=== PATIENT | male | born 1930 | race Caucasian/White ===

== ENCOUNTER 2017-12-03 20:26 | Emergency (ER) | payer MEDICARE, OTHER ==
[~2017-12-03] VITALS: Ht 175.3 cm; Wt 83.9 kg
[~2017-12-03 20:26] MED LIST: ALL300 PO; ALLO-119 PO; ALLO-2 PO; AMOX500T10 PO; CHOL100058 PO; CHOL100059 PO; CIPR-326 PO; DILT180C4 PO; DILT240C76 PO; DOC100 PO; FIN5 PO; FURO-45 PO; HYDR-3250 PO; LEV125 PO; LEVO125T77 PO; LOR5 PO; LOR5/325 PO; METO25TA93 PO; MIRA50TA PO; OXYC-865 PO; PHENA200 PO; SPIR25TA78 PO; TOLT4CAP13 PO; TRI05T TP; TRIA15CR40 TP; TRIA5T TOP; WAR25 PO; WARF-18 PO
--- NOTE | 2017-12-03 20:29 | ER Report ---
History and Physical Time Seen By : 20:28 HPI/ROS CHIEF COMPLAINT: Fall, right rib pain HISTORY OF PRESENT ILLNESS: 87-year-old male with multiple medical problems. On warfarin fell yesterday after he slipped on ice. He landed on the right side of his rib cage. He presents to the ER complaining of severe 9/10 right rib pain. He is barely able to take a deep breath. He has splinting respirations. He denies hemoptysis, fever, chills or productive cough. Patient denies head or neck pain. Patient denies extremity injury. REVIEW OF SYSTEMS: Respiratory: As above Cardiovascular: As above Gastrointestinal: No vomiting, no abdominal pain. Musculoskeletal: No back pain. Allergies: Coded Allergies: No Known Allergies (Verified Allergy, Mild, 12/03/17) Home Meds Active Scripts Oxycodone Hcl/Acetaminophen (PERCOCET 5-325 MG TABLET) 1 Each Tablet, 1 EACH PO Q4-6H Y for PAIN, #15 Prov:SHAWNA COLLAZO DO 12/03/17 Warfarin Sodium (WARFARIN SODIUM) 5 Mg Tablet, 0.5 TAB PO QDAY, #45 TAB 3 Refills Prov:SHWETA SEPULVEDA MD 05/24/15 Levothyroxine Sodium (LEVOTHYROXINE SODIUM) 0.125 Mg Tab, 1 TAB PO QDAY, #90 TAB 3 Refills Prov:SHWETA SEPULVEDA MD 04/23/15 Diltiazem Hcl (DILTIAZEM 24HR CD) 180 Mg Cap.er.24h, 1 CAP PO DAILY, #90 CAP 3 Refills Prov:SHWETA SEPULVEDA MD 04/23/15 Discontinued Reported Medications Mirabegron (MYRBETRIQ) 50 Mg Tab.er.24h, 50 MG PO QDAY 09/30/16 Cholecalciferol (Vitamin D3) (VITAMIN D3) 1,000 Unit Capsule, 1000 UNIT PO DAILY , CAPSULE 07/11/14 Discontinued Scripts Oxycodone Hcl/Acetaminophen (PERCOCET 5-325 MG TABLET) 1 Each Tablet, 1 EACH PO Q4H Y for PAIN, #15 Prov:VALESHAWNA Jos TOBIAS 09/30/16 Triamcinolone Acetonide 0.1% Cr 15 Gm Tube (TRIAMCINOLONE ACETONIDE 0.1% CREAM) 15 Gm Cream..g., 15 GM TP BID, #30 GM 3 Refills Prov:SHWETA SEPULVEDA MD 04/25/15 Allopurinol (Allopurinol) 300 Mg Tablet, 0.5 TAB PO 3XW, #30 TAB 3 Refills Prov:SHWETA SEPULVEDA MD 04/23/15 Spironolactone (SPIRONOLACTONE) 25 Mg Tablet, 1 TAB PO QAM, #90 TAB 3 Refills Prov:SHWETA SEPULVEDA MD 04/23/15 Metoprolol Tartrate (METOPROLOL TARTRATE) 25 Mg Tablet, 1 TAB PO BID, #180 TAB Prov:SHWETA SEPULVEDA MD 04/23/15 Reviewed Nurses Notes: Yes Old Medical Records Reviewed: Yes Hx Smoking: No Smoking Status: Former Smoker Hx Substance Use Disorder: No Hx Alcohol Use: Yes (SELDOM) Constitutional Vital Sign - Last 24 Hours 12/03/17 12/03/17 12/03/17 12/03/17 20:31 20:33 20:45 21:00 Temp 99.0 Pulse 88 87 82 Resp 14 B/P (MAP) 148/95 (112) 148/95 113/71 (85) Pulse Ox 95 94 96 O2 Delivery Room Air 12/03/17 12/03/17 12/03/17 12/03/17 21:09 21:29 21:30 21:45 Pulse 83 88 B/P (MAP) 127/70 (89) Pulse Ox 94 92 O2 Flow Rate 2.0 12/03/17 22:00 Pulse 88 Resp 16 B/P (MAP) 126/82 (97) Pulse Ox 92 O2 Delivery Room Air Physical Exam Vital signs stable,, pulse ox normal, afebrile General Appearance: The patient is alert, has no immediate need for airway protection and no current signs of toxicity. Moderate distress, skin warm, dry , pink, palpation of the head and neck reveals no tenderness or trauma HEENT: Pupils equal and round no injection. Oropharynx without dental trauma Respiratory: Significant right chest wall tenderness. There is no ecchymosis, crepitus or subcutaneous days air noted. Breath sounds are decreased. Cardiac: regular rate and rhythm Gastrointestinal: Abdomen is soft and non tender, no masses, bowel sounds normal. Musculoskeletal: Neck: Neck is supple and non tender. Extremities have full range of motion and are non tender. No evidence of trauma Skin: No rashes or lesions. DIFFERENTIAL DIAGNOSIS: After history and physical exam differential diagnosis was considered for fall in the elderly including but not limited to intracranial injury, long bone and pelvic bone fracture, spinal injury, and intrathoracic injury. Medical Decision Making Data Points Result Diagram: 12/03/17203912/03/172039 Laboratory Hematology Test 12/03/17 20:40 Red Blood Count 5.14 M/uL (4.00-5.60) Mean Corpuscular Volume 93.9 fL (80.0-96.0) Mean Corpuscular Hemoglobin 32.0 pg (26.0-33.0) Mean Corpuscular Hemoglobin Concent 34.1 g/dL (32.0-36.0) Red Cell Distribution Width 13.7 % (11.5-14.5) Mean Platelet Volume 8.1 fL (7.2-11.1) Neutrophils (%) (Auto) 66.4 % (39.4-72.5) Lymphocytes (%) (Auto) 15.0 % (17.6-49.6) Monocytes (%) (Auto) 14.4 % (4.1-12.4) Eosinophils (%) (Auto) 1.9 % (0.4-6.7) Basophils (%) (Auto) 2.3 % (0.3-1.4) Nucleated RBC Relative Count (auto) 0.1 /100WBC Neutrophils # (Auto) 5.6 K/uL (2.0-7.4) Lymphocytes # (Auto) 1.3 K/uL (1.3-3.6) Monocytes # (Auto) 1.2 K/uL (0.3-1.0) Eosinophils # (Auto) 0.2 K/uL (0.0-0.5) Basophils # (Auto) 0.2 K/uL (0.0-0.1) Nucleated RBC Absolute Count (auto) 0.00 K/uL Prothrombin Time 28.9 seconds (12.0-14.4) Prothromb Time International Ratio 2.62 Activated Partial Thromboplast Time 36 seconds (23-35) Sodium Level 139 mmol/L (137-145) Potassium Level 4.0 mmol/L (3.5-5.0) Chloride Level 102 mmol/L (98-107) Carbon Dioxide Level 27 mmol/L (22-30) Blood Urea Nitrogen 14 mg/dl (9-21) Creatinine 1.10 mg/dl (0.66-1.25) Glomerular Filtration Rate Calc > 60.0 Random Glucose 100 mg/dl (75-110) Calcium Level 9.9 mg/dl (8.4-10.2) Total Bilirubin 1.7 mg/dl (0.2-1.3) Aspartate Amino Transf (AST/SGOT) 22 U/L (0-35) Alanine Aminotransferase (ALT/SGPT) 34 U/L (0-56) Alkaline Phosphatase 70 U/L (0-126) Total Protein 7.2 gm/dl (6.3-8.2) Albumin 3.9 g/dl (3.5-5.0) Chemistry Test 12/03/17 20:40 White Blood Count 8.4 k/uL (4.5-11.0) Red Blood Count 5.14 M/uL (4.00-5.60) Hemoglobin 16.4 g/dL (14.0-18.0) Hematocrit 48.3 % (42.0-52.0) Mean Corpuscular Volume 93.9 fL (80.0-96.0) Mean Corpuscular Hemoglobin 32.0 pg (26.0-33.0) Mean Corpuscular Hemoglobin Concent 34.1 g/dL (32.0-36.0) Red Cell Distribution Width 13.7 % (11.5-14.5) Platelet Count 194 K/uL (150-450) Mean Platelet Volume 8.1 fL (7.2-11.1) Neutrophils (%) (Auto) 66.4 % (39.4-72.5) Lymphocytes (%) (Auto) 15.0 % (17.6-49.6) Monocytes (%) (Auto) 14.4 % (4.1-12.4) Eosinophils (%) (Auto) 1.9 % (0.4-6.7) Basophils (%) (Auto) 2.3 % (0.3-1.4) Nucleated RBC Relative Count (auto) 0.1 /100WBC Neutrophils # (Auto) 5.6 K/uL (2.0-7.4) Lymphocytes # (Auto) 1.3 K/uL (1.3-3.6) Monocytes # (Auto) 1.2 K/uL (0.3-1.0) Eosinophils # (Auto) 0.2 K/uL (0.0-0.5) Basophils # (Auto) 0.2 K/uL (0.0-0.1) Nucleated RBC Absolute Count (auto) 0.00 K/uL Prothrombin Time 28.9 seconds (12.0-14.4) Prothromb Time International Ratio 2.62 Activated Partial Thromboplast Time 36 seconds (23-35) Glomerular Filtration Rate Calc > 60.0 Calcium Level 9.9 mg/dl (8.4-10.2) Total Bilirubin 1.7 mg/dl (0.2-1.3) Aspartate Amino Transf (AST/SGOT) 22 U/L (0-35) Alanine Aminotransferase (ALT/SGPT) 34 U/L (0-56) Alkaline Phosphatase 70 U/L (0-126) Total Protein 7.2 gm/dl (6.3-8.2) Albumin 3.9 g/dl (3.5-5.0) Coagulation Test 12/03/17 20:40 Prothrombin Time 28.9 seconds Prothromb Time International Ratio 2.62 Activated Partial Thromboplast Time 36 seconds EKG/Imaging Imaging Results: CT scan of the chest with contrast was obtained. The results of the study are COMPUTED TOMOGRAPHY CHEST WITH INTRAVENOUS CONTRAST DATE OF EXAM: 12/03/2017 8:39 PM CLINICAL INDICATION: Fall, right-sided rib pain. COMPARISON: Rib series radiographs 09/30/2016. TECHNIQUE: Contrast enhanced axial chest CT performed during the uneventful injection of 75 ml of Isovue 370. Sagittal and coronal multiplanar reconstructions were performed. One of the following dose optimization techniques was utilized in the performance of this exam: Automated exposure control; adjustment of the mA and/or kV according to the patient's size; or use of an iterative reconstruction technique. Specific details can be referenced in the facility's radiology CT exam operational policy. FINDINGS: Thyroid: Normal. Thoracic inlet: Normal. Heart and great vessels: Mild to moderate enlargement of the heart. Nonaneurysmal aorta with moderate atherosclerosis. Central pulmonary arteries are enlarged. Mediastinum and alejandro: Shotty mediastinal lymph nodes. Lungs and pleura: Mild atelectasis. No pleural effusion or pneumothorax. 3 mm nodule in the right apex on image 27 series 2, and 4 mm subpleural nodule in the right lower lobe on image 80. Breast and axilla: Prominent bilateral gynecomastia. No adenopathy. Upper abdomen: Suspected right renal cyst, incompletely imaged. Colonic diverticulosis. Subcentimeter cyst in the left lobe of the liver. Cholecystectomy. Bones and soft tissues: There are nondisplaced lateral fractures of the right 5th through 9th ribs that are likely acute. Additional bilateral remote fractures. IMPRESSION: 1. Acute nondisplaced lateral fractures of the right 5th through 9th ribs. 2. Mild/moderate cardiomegaly. 3. Enlarged central pulmonary arteries could indicate pulmonary arterial hypertension. The study was read by the radiologist. I viewed the images myself on the PACS system. ED Course/Re-evaluation Clinical Indication for ER IV: Hydration, IV Access ED Course Patient was admitted to an examination room. H&P was done. The differential diagnoses was considered. On clinical examination. She has significant right rib pain. A CT scan of the chest with IV contrast is performed. Since he is on anticoagulants.. The CT scan shows 4. Nondisplaced rib fractures of the right chest wall. Patient was medicated with fentanyl IV. His diagnostic studies are otherwise unremarkable. Patient be discharged home on Percocet for pain control. He's been on Percocet which was prescribed in the past and had tolerated it well. She was cautioned to start fiber and stool softeners to prevent constipation. Decision to Disposition Date: Dec 03, 2017 Decision to Disposition Time: 22:04 Depart Departure Latest Vital Signs Vital Signs Date Time Temp Pulse Resp B/P (MAP) Pulse Ox O2 Delivery O2 Flow Rate FiO2 12/03/17 22:00 88 16 126/82 (97) 92 Room Air 12/03/17 21:09 2.0 12/03/17 20:33 99.0 Impression: Primary Impression: Fracture four ribs-closed Condition: Improved Disposition: HOME OR SELF-CARE Referrals: YEFRI BLEVINS DO (PCP) New Scripts Oxycodone Hcl/Acetaminophen (PERCOCET 5-325 MG TABLET) 1 Each Tablet 1 EACH PO Q4-6H Y for PAIN, #15 Prov: SHAWNA COLLAZO DO 12/03/17 Patient Instructions: Rib Fracture (ED) Additional Instructions: Follow-up with your primary care if unimproved in 3-5 days Return to the ER for any worsening, especially a fever or shortness of breath Problem Qualifiers Primary Impression: Fracture four ribs-closed Encounter type: initial encounter Laterality: right Qualified Codes: S22.41XA - Multiple fractures of ribs, right side, initial encounter for closed fracture SHAWNA COLLAZO DO Dec 03, 2017 20:29
[2017-12-03] MEDS ORDERED: NS(*) 0.9% 1000 ML BAG 1,000 ML IV ONE (20:39)
[2017-12-03] MEDS ORDERED: ONDANSETRON 4 MG/2 ML VIAL IVP ONE (20:40)
[2017-12-03] MEDS ORDERED: fentaNYL CITR 100 MCG/2 ML AMP IVP ONE (20:40)
[2017-12-03] MEDS ORDERED: NS 0.9% 20 ML SDV 60 ML ONE (20:48)
[2017-12-03] MEDS ORDERED: IOPAMIDOL 76% 75 ML INFUS BTL 75 ML ONE (20:48)
[2017-12-03 20:53] LABS: PLATELET COUNT, AUTOMATED 194 K/uL (150-450)
[2017-12-03 20:59] LABS: INR 2.62
--- NOTE | 2017-12-03 21:59 | RADIOLOGY IMAGING REPORT ---
FACILITY: [facility] [place] PATIENT NAME: Haroldo Garza : 1930 MR: [id number] V: [id number] EXAM DATE: ORDERING PHYSICIAN: SHAWNA COLLAZO TECHNOLOGIST: Location: [facility] Patient: Haroldo Garza : 1930 Visit/Account:[id number] Date of Sevice: 12/03/2017 COMPUTED TOMOGRAPHY CHEST WITH INTRAVENOUS CONTRAST DATE OF EXAM: 12/03/2017 8:39 PM CLINICAL INDICATION: Fall, right-sided rib pain. COMPARISON: Rib series radiographs 09/30/2016. TECHNIQUE: Contrast enhanced axial chest CT performed during the uneventful injection of 75 ml of Iso bonita 370. Sagittal and coronal multiplanar reconstructions were performed. One of the following dose optimization techniques was utilized in the performance of this exam: Automated exposure control; ad justment of the mA and/or kV according to the patient's size; or use of an iterative reconstruction technique. Specific details can be referenced in the facility's radiology CT exam operational policy . FINDINGS: Thyroid: Normal. Thoracic inlet: Normal. Heart and great vessels: Mild to moderate enlargement of the heart. Nonaneurysmal aorta with modera te atherosclerosis. Central pulmonary arteries are enlarged. Mediastinum and alejandro: Shotty mediastinal lymph nodes. Lungs and pleura: Mild atelectasis. No pleural effusion or pneumothorax. 3 mm nodule in the right apex on image 27 series 2, and 4 mm subpleural nodule in the right lower lobe on image 80. Breast and axilla: Prominent bilateral gynecomastia. No adenopathy. Upper abdomen: Suspected right renal cyst, incompletely imaged. Colonic diverticulosis. Subcentimet er cyst in the left lobe of the liver. Cholecystectomy. Bones and soft tissues: There are nondisplaced lateral fractures of the right 5th through 9th ribs t hat are likely acute. Additional bilateral remote fractures. IMPRESSION: 1. Acute nondisplaced lateral fractures of the right 5th through 9th ribs. 2. Mild/moderate cardiomegaly. 3. Enlarged central pulmonary arteries could indicate pulmonary arterial hypertension. Report Dictated By: Derrick Sanchez MD at 12/03/2017 9:43 PM Report E-Signed By: Derrick Sanchez MD at 12/03/2017 9:54 PM [id number]
[2017-12-03 22:00] VITALS: BP 126/82
[2017-12-03] MEDS ORDERED: OXYC-865 PO (22:05)
[2017-12-03] MEDS ORDERED: oxyCODONE/ACETAMIN 5/325MG TH 2 TAB/BOTTLE PO ONE (22:10)
== END 2017-12-03 22:15 | disposition home or self-care (01) ==
LOC: ER 20:30
DX: S22.41XA Multiple fractures of ribs, right side, initial encounter for closed fracture (principal); W00.0XXA Fall on same level due to ice and snow, initial encounter
CPT/HCPCS: 71260; 85025; 85610; 85730; 96361; 96374; 96375; 99284; J2405; J3010; J7030; J7050; Q9967; 82040; 82247; 82310; 82374; 82435; 82565; 82947; 84075; 84132; 84155; 84295; 84450; 84460; 84520

== ENCOUNTER 2018-04-17 09:04 | Emergency (ER) | payer MEDICARE, OTHER ==
[~2018-04-17 09:04] MED LIST changes: -WARF-18 PO; +WARF5TAB23 PO
--- NOTE | 2018-04-17 09:53 | ER Report ---
History and Physical Time Seen By MD: 09:00 Hx. of Stated Complaint: PT REPORTS FALLING ABOUT A WEEK AGO AND SINCE FEELS PAIN IN LOW BACK, MORE WITH MOVEMENT; ALSO HIT HEAD "NO REPERCUSSIONS FROM THAT" HPI/ROS 87-year-old male presents to the emergency department complaining of low back pain after a fall one week ago. He has no other complaints. He has no complaints of weakness or neurologic deficits to include changes in bowel or bladder. He is still able to ambulate but with considerable amount of pain. He has been taking Tylenol, however the pain is still worsening. Allergies: Coded Allergies: No Known Allergies (Verified Allergy, Mild, 12/03/17) oxycodone (Verified Allergy, Unknown, 04/17/18) Home Meds Active Scripts Warfarin Sodium (WARFARIN SODIUM) 5 Mg Tablet, 0.5 TAB PO QDAY, #45 TAB 3 Refills Prov:SHWETA SEPULVEDA MD 05/24/15 Levothyroxine Sodium (LEVOTHYROXINE SODIUM) 0.125 Mg Tab, 1 TAB PO QDAY, #90 TAB 3 Refills Prov:SHWETA SEPULVEDA MD 04/23/15 Diltiazem Hcl (DILTIAZEM 24HR CD) 180 Mg Cap.er.24h, 1 CAP PO DAILY, #90 CAP 3 Refills Prov:SHWETA SEPULVEDA MD 04/23/15 Discontinued Scripts Oxycodone Hcl/Acetaminophen (PERCOCET 5-325 MG TABLET) 1 Each Tablet, 1 EACH PO Q4-6H Y for PAIN, #15 Prov:SHAWNA COLLAZO DO 12/03/17 Hx Smoking: No Smoking Status: Former Smoker Hx Substance Use Disorder: No Hx Alcohol Use: Yes (SELDOM) Constitutional Vital Sign - Last 24 Hours 04/17/18 04/17/18 04/17/18 04/17/18 09:04 09:09 09:10 09:15 Temp 97.5 Pulse ??? 85 Resp 18 B/P (MAP) 142/86 142/86 (104) 137/71 (93) Pulse Ox 94 O2 Delivery Room Air 04/17/18 04/17/18 04/17/18 04/17/18 09:19 09:30 09:34 09:45 Pulse 95 88 B/P (MAP) 112/63 (79) 115/59 (77) Pulse Ox 97 94 04/17/18 04/17/18 04/17/18 04/17/18 09:49 10:00 10:04 10:15 Pulse 93 105 B/P (MAP) 111/72 (85) ???/??? (1665) Pulse Ox 96 93 04/17/18 04/17/18 04/17/18 04/17/18 10:19 10:30 10:34 10:45 Pulse ??? 80 B/P (MAP) 116/78 (91) 110/74 (86) Pulse Ox 95 04/17/18 04/17/18 04/17/18 04/17/18 10:49 11:00 11:05 11:15 Pulse 72 64 B/P (MAP) 127/89 (102) 117/72 (87) Pulse Ox 94 96 04/17/18 04/17/18 04/17/18 04/17/18 11:20 11:30 11:45 11:50 Pulse 70 ??? B/P (MAP) ???/??? (1665) ???/??? (1665) Pulse Ox 95 04/17/18 04/17/18 04/17/18 04/17/18 12:00 12:05 12:20 12:35 Pulse ? 76 B/P (MAP) ???/??? (1665) Pulse Ox 92 Physical Exam General Appearance: The patient is alert, has no immediate need for airway protection and no signs of toxicity. Eyes: Pupils equal and round no pallor or injection. ENT, Mouth: Mucous membranes are moist. Respiratory: There are no retractions, lungs are clear to auscultation. Cardiovascular: Regular rate and rhythm. Gastrointestinal: Abdomen is soft and non tender, no masses, bowel sounds normal. Neurological: strength/sensation grossly in tact Skin: Warm and dry, no rashes. Musculoskeletal: Mild TTP of L1-L3 with paraspinal TTP at the same area b/l. Neck is supple non tender. Extremities are nontender, nonswollen and have full range of motion. DIFFERENTIAL DIAGNOSIS: After history and physical exam differential diagnosis was considered for ICH, CHI, vertebral fracture, spinal cord compromise Medical Decision Making Data Points Result Diagram: 04/17/18 1119 04/17/18 1119 Laboratory Hematology Test 04/17/18 11:19 Red Blood Count 5.24 M/uL (4.00-5.60) Mean Corpuscular Volume 92.5 fL (80.0-96.0) Mean Corpuscular Hemoglobin 31.9 pg (26.0-33.0) Mean Corpuscular Hemoglobin Concent 34.5 g/dL (32.0-36.0) Red Cell Distribution Width 13.8 % (11.5-14.5) Mean Platelet Volume 7.9 fL (7.2-11.1) Neutrophils (%) (Auto) 70.6 % (39.4-72.5) Lymphocytes (%) (Auto) 17.1 % (17.6-49.6) Monocytes (%) (Auto) 9.3 % (4.1-12.4) Eosinophils (%) (Auto) 2.4 % (0.4-6.7) Basophils (%) (Auto) 0.6 % (0.3-1.4) Nucleated RBC Relative Count (auto) 0.0 /100WBC Neutrophils # (Auto) 4.4 K/uL (2.0-7.4) Lymphocytes # (Auto) 1.1 K/uL (1.3-3.6) Monocytes # (Auto) 0.6 K/uL (0.3-1.0) Eosinophils # (Auto) 0.1 K/uL (0.0-0.5) Basophils # (Auto) 0.0 K/uL (0.0-0.1) Nucleated RBC Absolute Count (auto) 0.00 K/uL Peripheral Blood Smear No Y/N Prothrombin Time 24.7 seconds (12.0-14.4) Prothromb Time International Ratio 2.16 Activated Partial Thromboplast Time 32 seconds (23-35) Sodium Level 139 mmol/L (137-145) Potassium Level 4.1 mmol/L (3.5-5.0) Chloride Level 103 mmol/L (98-107) Carbon Dioxide Level 25 mmol/L (22-30) Blood Urea Nitrogen 21 mg/dl (9-21) Creatinine 1.00 mg/dl (0.66-1.25) Glomerular Filtration Rate Calc > 60.0 Random Glucose 105 mg/dl (75-110) Calcium Level 10.1 mg/dl (8.4-10.2) Total Bilirubin 1.3 mg/dl (0.2-1.3) Aspartate Amino Transf (AST/SGOT) 37 U/L (0-35) Alanine Aminotransferase (ALT/SGPT) 47 U/L (0-56) Alkaline Phosphatase 81 U/L (0-126) Total Protein 6.7 gm/dl (6.3-8.2) Albumin 3.8 g/dl (3.5-5.0) Chemistry Test 04/17/18 11:19 White Blood Count 6.3 k/uL (4.5-11.0) Red Blood Count 5.24 M/uL (4.00-5.60) Hemoglobin 16.7 g/dL (14.0-18.0) Hematocrit 48.5 % (42.0-52.0) Mean Corpuscular Volume 92.5 fL (80.0-96.0) Mean Corpuscular Hemoglobin 31.9 pg (26.0-33.0) Mean Corpuscular Hemoglobin Concent 34.5 g/dL (32.0-36.0) Red Cell Distribution Width 13.8 % (11.5-14.5) Platelet Count 227 K/uL (150-450) Mean Platelet Volume 7.9 fL (7.2-11.1) Neutrophils (%) (Auto) 70.6 % (39.4-72.5) Lymphocytes (%) (Auto) 17.1 % (17.6-49.6) Monocytes (%) (Auto) 9.3 % (4.1-12.4) Eosinophils (%) (Auto) 2.4 % (0.4-6.7) Basophils (%) (Auto) 0.6 % (0.3-1.4) Nucleated RBC Relative Count (auto) 0.0 /100WBC Neutrophils # (Auto) 4.4 K/uL (2.0-7.4) Lymphocytes # (Auto) 1.1 K/uL (1.3-3.6) Monocytes # (Auto) 0.6 K/uL (0.3-1.0) Eosinophils # (Auto) 0.1 K/uL (0.0-0.5) Basophils # (Auto) 0.0 K/uL (0.0-0.1) Nucleated RBC Absolute Count (auto) 0.00 K/uL Peripheral Blood Smear No Y/N Prothrombin Time 24.7 seconds (12.0-14.4) Prothromb Time International Ratio 2.16 Activated Partial Thromboplast Time 32 seconds (23-35) Glomerular Filtration Rate Calc > 60.0 Calcium Level 10.1 mg/dl (8.4-10.2) Total Bilirubin 1.3 mg/dl (0.2-1.3) Aspartate Amino Transf (AST/SGOT) 37 U/L (0-35) Alanine Aminotransferase (ALT/SGPT) 47 U/L (0-56) Alkaline Phosphatase 81 U/L (0-126) Total Protein 6.7 gm/dl (6.3-8.2) Albumin 3.8 g/dl (3.5-5.0) Coagulation Test 04/17/18 11:19 Prothrombin Time 24.7 seconds Prothromb Time International Ratio 2.16 Activated Partial Thromboplast Time 32 seconds EKG/Imaging Imaging X-ray: lumbar spine was obtained. I viewed the images myself on the PACS system. My interpretation of the images is: L1 compression fracture. The radiologist interpretation had no clinically significant variation from this interpretation. Results: MRI of the lumbar spine was obtained. The results of the study are acute L1 compression fracture. The study was read by the radiologist. I viewed the images myself on the PACS system. ED Course/Re-evaluation ED Course This is an 87-year-old male who fell one week ago onto his back when he slipped on wet concrete. At the time he did not hit his head, and no loss of consciousness. He does not have any complaints of a headache or any neurologic changes. He is on warfarin, however given the incident was a week ago I do not think he needs a CT scan of the head at this time. He presented to the emergency department complaining of back pain that has worsened in spite of taking Tylenol for the past week. She denies any focal neurologic changes. No weakness, and no changes in bowel or bladder. An initial x-ray was questionable for an acute versus chronic compression fracture of L1. A confirmatory MRI was obtained and confirms that the L1 compression fracture is acute. I placed the patient in a back brace, and advised him to take 1 g of Tylenol 3 times a day for pain. I'll have him follow up with Dr. Houston of orthopedics. He is also requesting a primary care physician so I am referring him to Dr. Tova Barrett. Decision to Disposition Date: Apr 17, 2018 Decision to Disposition Time: 13:38 Depart Departure Latest Vital Signs Vital Signs Date Time Temp Pulse Resp B/P (MAP) Pulse Ox O2 Delivery O2 Flow Rate FiO2 04/17/18 12:35 76 92 04/17/18 12:00 ???/??? (1665) 04/17/18 09:09 97.5 18 Room Air Impression: Primary Impression: Compression fracture Condition: Improved Disposition: HOME OR SELF-CARE Referrals: YEFRI BLEVINS DO (PCP) TOVA BARRETT MD, DOUGLAS DO Patient Instructions: Vertebral Compression Fracture (ED) Additional Instructions: FOR PAIN, YOU CAN TAKE 1 GRAM (TWO 500MG TABLETS) OF TYLENOL THREE TIMES A DAY. WEAR YOUR BRACE UNTIL CLEARED BY HAYDE MCNEILL MD Apr 17, 2018 09:53
[2018-04-17] MEDS ORDERED: KETOROLAC 60 MG/2 ML VIAL IM ONE (09:55)
[2018-04-17] MEDS ORDERED: ACETAMINOPHEN 500 MG TAB PO ONE (09:55)
[2018-04-17] MEDS ORDERED: DEXAMETHASONE 4 MG TAB PO ONE (09:55)
--- NOTE | 2018-04-17 10:42 | RADIOLOGY IMAGING REPORT ---
FACILITY: [facility] [place] PATIENT NAME: Haroldo Garza : 1930 MR: [id number] V: [id number] EXAM DATE: ORDERING PHYSICIAN: HAYDE VELAZQUEZ TECHNOLOGIST: Location: [facility] [place] Patient: Haroldo Garza : 1930 Visit/Account:[id number] Date of Sevice: 04/17/2018 Three-view lumbar spine COMPARISONS: None. ADDITIONAL PERTINENT HISTORY: Fall one week ago FINDINGS: Vertebral body heights and alignments: Mild to moderate loss of height at the level of L1. Mild scol iotic curvature convex to the left centered at L3-L4. Vertebral bodies: Anteriorly directed osteophytes at multiple levels. Facet hypertrophic changes invo lving the lower lumbar spine. Facet hypertrophic changes involving the lower lumbar spine. Disc spaces: Disc space narrowing at multiple levels within the lumbar spine. Visualized bony pelvis: Negative. Surrounding soft tissues: Patient status post cholecystectomy. IMPRESSION: 1. Scoliotic and spondylitic change as discussed above. 2. Age indeterminate moderate compression deformity at the level of L1. MRI is available if further d efinition of acuity is needed at this level. Report Dictated By: Chalino Watson MD at 04/17/2018 10:34 AM Report E-Signed By: Chalino Watson MD at 04/17/2018 10:37 AM WSN:[id number]
[2018-04-17 11:27] LABS: PLATELET COUNT, AUTOMATED 227 K/uL (150-450)
[2018-04-17 11:35] LABS: INR 2.16
--- NOTE | 2018-04-17 12:50 | RADIOLOGY IMAGING REPORT ---
FACILITY: [facility] [place] PATIENT NAME: Haroldo Garza : 1930 MR: [id number] V: [id number] EXAM DATE: ORDERING PHYSICIAN: HAYDE VELAZQUEZ TECHNOLOGIST: Location: [facility] Patient: Haroldo Garza : 1930 Visit/Account:[id number] Date of Sevice: 04/17/2018 L SPINE W/O CONTRAST COMPARISON: Views of the lumbar spine dated earlier same day. Additional pertinent history: Possible compression fracture at L1. Technique: Multiplanar multisequence lumbar spine MRI was performed without gadolinium enhancement. FINDINGS: Vertebral body heights and alignment: Mild loss of height at the level of L1. Vertebral marrow signal: Marrow edema within the superior endplate of L1. Distal thoracic cord and conus: Negative. The conus ends at T12-L1. Surrounding soft tissues: Small uniform increased T2 signal lesion involving the midportion of the ri ght kidney. Otherwise negative Inspection of the disc spaces reveal the following: L5-S1: Minimal circumferential disc bulging at L5-S1. No significant canal or neural foraminal narrow ing. L4-L5: Posterior broad-based disc protrusion with facet hypertrophic changes. Superimposed left neura l foraminal disc extrusion. Severe left-sided neural foraminal narrowing. No significant right-sided neural foraminal narrowing. No canal stenosis. L3-L4: Posterior broad-based disc protrusion with a superimposed right neural foraminal disc extrusio n. Severe right-sided neural foraminal narrowing. Mild left-sided neural foraminal narrowing. No satya l stenosis. L2-L3: Posterior broad-based disc protrusion with facet hypertrophic changes. Moderate bilateral neur al foraminal narrowing with mild canal stenosis. L1-L2: Posterior broad-based disc protrusion with facet hypertrophic changes. Mild bilateral neural f oraminal narrowing without canal stenosis. T12-L1: Posterior broad-based disc protrusion with facet hypertrophic changes. No significant canal o r neural foraminal narrowing. IMPRESSION: 1. Acute appearing mild compression fracture at the level of L1. 2. Multilevel spondylitic change as discussed above. 3. Findings felt to be potentially most significant at L2-L3 with mild canal stenosis and moderate bi lateral neural foraminal narrowing. Report Dictated By: Chalino Watson MD at 04/17/2018 12:41 PM Report E-Signed By: Chalino Watson MD at 04/17/2018 12:47 PM WSN:[id number]
[2018-04-17 13:00] VITALS: BP 132/87
== END 2018-04-17 13:30 | disposition home or self-care (01) ==
LOC: ER 09:07
DX: S32.010A Wedge compression fracture of first lumbar vertebra, initial encounter for closed fracture (principal); W01.0XXA Fall on same level from slipping, tripping and stumbling without subsequent striking against object, initial encounter
CPT/HCPCS: 36415; 72100; 72148; 85025; 85610; 85730; 96372; 99284; A9270; J1885; J8540; 82040; 82247; 82310; 82374; 82435; 82565; 82947; 84075; 84132; 84155; 84295; 84450; 84460; 84520

== ENCOUNTER → 2018-05-24 | Outpatient (CLI) | payer MEDICARE, OTHER ==
[~2018-05-24] MED LIST changes: +BIMA2.5D5 OD; +OXYGENHOME INH; +SPIR25TA80 PO; +WARF2.5T11 PO
== END ==
LOC: LAB 14:56
PROVIDERS: ATTEND Family Medicine
DX: E03.9 Hypothyroidism, unspecified (principal)
CPT/HCPCS: 36415; 84443

== ENCOUNTER → 2018-10-19 | Outpatient (CLI) | payer MEDICARE, OTHER ==
[~2018-10-19] MED LIST changes: +DULO30CA6 PO; +LEVO-3 PO; +LEVO88TA45 PO
== END ==
LOC: LAB 09:21
PROVIDERS: ATTEND Urology
DX: Z12.5 Encounter for screening for malignant neoplasm of prostate (principal)
CPT/HCPCS: 36415; G0103; 84153

== ENCOUNTER → 2019-01-07 | Outpatient (CLI) | payer MEDICARE, OTHER ==
[~2019-01-07] MED LIST changes: +METH5TAB85 PO
[2019-01-07 13:48] LABS: PLATELET COUNT, AUTOMATED 197 K/uL (150-450)
== END ==
LOC: LAB 13:26
PROVIDERS: ATTEND Family Medicine
DX: I48.91 Unspecified atrial fibrillation (principal); E03.9 Hypothyroidism, unspecified
CPT/HCPCS: 36415; 82310; 82374; 82435; 82565; 82947; 84132; 84295; 84443; 84520; 85025